=== PATIENT | female | born 1955 | race Caucasian/White ===

== ENCOUNTER 2023-05-11 13:11 | Outpatient (REF) | payer OTHER, SELFPAY | END 2023-05-11 13:12 | disposition home or self-care (01) | LOC: HO.SH 13:11 | PROVIDERS: Visit Provider Internal Medicine | DX: Z01.10 Encounter for examination of ears and hearing without abnormal findings (principal) | CPT/HCPCS: 92557 ==

== ENCOUNTER 2023-06-29 12:47 | Outpatient (REF) | payer SELFPAY ==
--- NOTE | 2023-06-29 13:32 | MHC.AU.HA1 ---
Hearing Aid Evaluation Date of Visit: 06/29/23 Historical Information: Description of Hearing: Within normal sloping to moderate sensorineural hearing loss, bilaterally. Summary: Riya reported that in August 2023, she will be added to an [facility] Medicare insurance plan that has a hearing aid benefit through [facility]. Discussed third constitution party administered benefits and advised that [facility] is not a contracted provider for hearing aids through that plan. She would need to contact [facility] to inquire about contracted providers in the area. Briefly discussed manufacturers, styles, technology levels, and pricing. Riya opted to do more research into [facility] [place]. She will call to reschedule a full consultation if she decides to pursue hearing aids here. She knows hearing aids have to be fit within six months of her hearing test and if she opts to come here, it would be an [id number] expense. Plan of Care: Patient is not interested in pursuing new amplification at this time. Primary Diagnosis: H90.3 Bilateral Sensorineural Hearing Loss Signature: Provider: Arpita Jay, [facility]
== END 2023-06-29 12:48 | disposition home or self-care (01) ==
LOC: HO.HAP 12:47
PROVIDERS: Visit Provider Internal Medicine
DX: Z13.89 Encounter for screening for other disorder (principal)

== ENCOUNTER 2023-12-19 10:33 | Outpatient (AMB) | payer OTHER, SELFPAY ==
--- NOTE | 2023-12-19 10:39 | MHC.PC.OV ---
Vital Signs 12/19/23 10:42 Height 5 ft 2 in Weight 147 lb BMI 26.9 BP 162/90 H Blood Pressure Location Rt brachial Position Sitting Pulse 79 Pulse Source Pulse Oximeter Pulse Oximetry (%) 98 Oxygen Delivery Method Room Air Intake Visit Reasons: Establish Care transfer from [facility] Note: pt is here for establish care Supervisor Shipping Required: No Allergies divalproex sodium [From Depakote] Allergy (Severe, Verified 12/19/23 10:44) Unconscious Medication List - Last Reconciled 12/19/23 by Naye Tony MD amlodipine 5 mg PO DAILY carbamazepine 400 mg PO BID sertraline 100 mg PO BID simvastatin 40 mg PO BEDTIME Tobacco use date assessed: 12/19/23 Fall risk assessment: No Falls in past year Last assessed Fall Risk: 12/19/23 Dental Screening Dental Screen Date: 12/19/23 Did you have a dental visit in the last 12 months?: Yes Did you have a dental problem in the last 6 months where you did not have access to dental care?: No Was dental information given to patient?: Patient has dentist HPI HPI Comments History of Present Illness Details The patient is a 68 year old female with a past medical history of anxiety, depression, hypertension, hyperlipidemia presenting for follow up CV: Her blood pressures were running high. She was seen in urgent care and prescribed amlodipine. There was some improvement in readings but still can be quite high especially in the am-ie 180/90. She is tolerated the amlodipine well. She attributes the high blood pressure to stress from managing the house, finances etc after her last year. BH: Her one year ago. She follows with [facility]. She has been fairly stable on sertraline and tegretol however does still experience some episodes of grief. 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 1. Little interest or pleasure in doing things: not at all 2. Feeling down, depressed, or hopeless: not at all 3. Trouble falling or staying asleep, or sleeping too much: not at all 4. Feeling tired or having little energy: not at all 5. Poor appetite or overeating: not at all 6. Feeling bad about yourself - or that you are a failure or have let yourself or your family down: not at all 7. Trouble concentrating on things, such as reading the newspaper or watching television: not at all 8. Moving or speaking so slowly that other people could have noticed. Or the opposite - being so fidgety or restless that you have been moving around a lot more than usual: not at all 9. Thoughts that you would be better off or of hurting yourself in some way: not at all Total score: 0 Depression Screening Interpretation: Negative (neg) Depression Screening Done: Yes 86935 - PHQ-9 Billing: Yes Source: Developed by Drs. Bandar Medellin, Celine Rodriguez, Anson Mcgowan and colleagues, with an educational mc from [employer]. Thrive Questionnaire Date Thrive assessed: 12/19/23 I am a: Patient What is your living situation today?: I have a steady place to live Within the past 12 months, did the food you bought not last and you didn't have the money to get more?: Never true Within the past 12 months, did you worry whether your food would run out before you got money to buy more?: Never true Do you have trouble paying for medicines?: No Do you have trouble getting transportation to medical appointments?: No Do you have trouble paying your heating and electricity bill?: No Do you have trouble taking care of your child, family member or friend?: No Do you have trouble with day-to-day activities such as bathing, preparing meals, shopping, managing finances, etc.?: No Are you currently unemployed and looking for a job?: No Are you interested in more education?: No Please select the resources that you would like help with: None Currently or been in a relationship where the following occur: no concerns reported THRIVE Score: 0 AUDIT C Alcohol Use Questionnaire (AUDIT-C) 1. How often do you have a drink containing alcohol?: Never 3. How often do you have six or more drinks on one occasion?: Never Total Score: 0 Score Reviewed/Action Taken: Yes BHARTI-7 AMB Questionnaire BHARTI-7 Date BHARTI - 7 assessed: 12/19/23 Feeling nervous, anxious, or on edge: 0 = Not at all Not being able to stop or control worryin = Not at all Worrying too much about different things: 0 = Not at all Trouble relaxin = Several days Being so restless that it is hard to sit still: 0 = Not at all Becoming easily annoyed or irritable: 0 = Not at all Feeling afraid as if something awful might happen: 0 = Not at all Total BHARTI-7 score (0-4 normal; 5-9 mild; 10-14 moderate; 15-21 severe): 1 Source: Developed by Drs. Bandar Medellin, Celine Rodriguez, Anson Mcgowan and colleagues, with an educational mc from [employer]. BHARTI-7 Assessment Billing BHARTI-7 Assessment Tool: BHARTI-7 Assessment 74764 Review of Systems Const Details: see HPI Physical exam (Primary Care) Vital Signs: Last Vital Signs Pulse 79 12/19/23 10:42 BP 162/90 H 12/19/23 10:42 Pulse Ox 98 12/19/23 10:42 Oxygen Delivery Method Room Air 12/19/23 10:42 PHYSICAL EXAM: GENERAL: Alert and oriented x 3. NAD EYES: EOMI. Anicteric. HENT: Moist mucous membranes. No scleral icterus. No cervical lymphadenopathy. LUNGS: Clear to auscultation bilaterally. CARDIOVASCULAR: Regular rate and rhythm. No murmur. No JVD. ABDOMEN: Soft, non-tender +bs EXTREMITIES: No edema. Non-tender. SKIN: No rashes or lesions. Warm. NEUROLOGIC: No focal neurological deficits. CN II-XII grossly intact PSYCHIATRIC: Cooperative. Appropriate mood and affect BMI result Body Mass Index 26.9 Tobacco/Smoking Status: Tobacco use Status Tobacco use date assessed 12/19/23 12/19/23 10:51 Patient Tobacco Use Status Never used Tobacco 12/19/23 10:51 e-Cigarette/Vaping Use Never Used 12/19/23 10:51 Depression Screening Interpretation: Negative (neg) Thrive Assessment: Date of Thrive Assessment Date Thrive assessed 12/19/23 12/19/23 10:53 Currently or been in a relationship where the following occur: no concerns reported Assessment and Plan Assessment & Plan (1) Hypertension: Comment: suboptimal control. Start losartan in evening. Continue am amlodipine. Continue to track. Recommend low salt diet. Code(s): I10 - Essential (primary) hypertension Qualifiers: Hypertension type: primary hypertension Qualified Code(s): I10 - Essential (primary) hypertension (2) Hyperlipidemia: Code(s): E78.5 - Hyperlipidemia, unspecified Qualifiers: Hyperlipidemia type: mixed hyperlipidemia Qualified Code(s): E78.2 - Mixed hyperlipidemia (3) Major depressive disorder, recurrent, in partial remission: Comment: stable Code(s): F33.41 - Major depressive disorder, recurrent, in partial remission Orders: Orders IRON PROFILE Today E78.2 - Mixed hyperlipidemia, F33.41 - Major depressive disorder, recurrent, in partial remission, I10 - Essential (primary) hypertension, R53.83 - Other fatigue, Z51.81 - Encounter for therapeutic drug level monitoring Comprehensive Met. Panel Today E78.2 - Mixed hyperlipidemia, F33.41 - Major depressive disorder, recurrent, in partial remission, I10 - Essential (primary) hypertension, R53.83 - Other fatigue, Z51.81 - Encounter for therapeutic drug level monitoring Complete Blood Count Auto Diff Today E78.2 - Mixed hyperlipidemia, F33.41 - Major depressive disorder, recurrent, in partial remission, I10 - Essential (primary) hypertension, R53.83 - Other fatigue, Z51.81 - Encounter for therapeutic drug level monitoring Carbamazepine Tegretol Today E78.2 - Mixed hyperlipidemia, F33.41 - Major depressive disorder, recurrent, in partial remission, I10 - Essential (primary) hypertension, R53.83 - Other fatigue, Z51.81 - Encounter for therapeutic drug level monitoring TSH reflex Free T4 Today E78.2 - Mixed hyperlipidemia, F33.41 - Major depressive disorder, recurrent, in partial remission, I10 - Essential (primary) hypertension, R53.83 - Other fatigue, Z51.81 - Encounter for therapeutic drug level monitoring Vitamin B12 and Folate Today E78.2 - Mixed hyperlipidemia, F33.41 - Major depressive disorder, recurrent, in partial remission, I10 - Essential (primary) hypertension, R53.83 - Other fatigue, Z51.81 - Encounter for therapeutic drug level monitoring Medications: New losartan 25 mg PO DAILY 90 tabs 3RF 90 days amlodipine 5 mg PO DAILY 90 tabs 3RF 90 days Coding Level of Care Code Est Pt Level 4 (87171) Complex EM visit Add On G2211 Diagnoses Primary hypertension I10 Hypertension type: primary hypertension Mixed hyperlipidemia E78.2 Hyperlipidemia type: mixed hyperlipidemia Major depressive disorder, recurrent, in partial remission F33.41 Additional Codes BHARTI-7 Assessment Billing - BHARTI-7 Assessment Tool: BHARTI-7 Assessment [id number] ([id number])
[2023-12-19 10:42] VITALS: BP 162/90; PULSE 79; O2SAT 98; BMI 26.9
== END 2023-12-19 11:30 | disposition home or self-care (01) ==
PROVIDERS: Visit Provider Internal Medicine
DX: I10 Essential (primary) hypertension (principal); E78.2 Mixed hyperlipidemia; F33.41 Major depressive disorder, recurrent, in partial remission
CPT/HCPCS: 99214; G2211

== ENCOUNTER 2023-12-28 08:24 | Outpatient (REF) | payer OTHER, SELFPAY ==
[2023-12-28 11:46] LABS: MANUAL DIFF FLAG NO
[2023-12-28 11:52] LABS: Basophils Percent Auto 0.3 % (0-2); Eosinophils Absolute Auto 0.1 X10*3/uL (0.0-0.4); Eosinophils Percent Auto 2.5 % (0-4); Hematocrit 40.2 % (37.0-47.0); Hemoglobin 13.3 g/dl (12.0-16.0); Imm Gran Abs Auto 0.02 X10*3/uL (0.00-0.03); Imm Gran Pct Auto 0.6 % (0.0-0.4); Lymphocytes Absolute Auto 1.5 X10*3/uL (1.2-4.9); Lymphocytes Percent Auto 43.1 % (20-40); Mean Corpuscular HGB Conc 33.1 g/dl (31.0-35.0); Mean Corpuscular Hemoglobin 32.4 pg (27.0-33.0); Mean Corpuscular Volume 97.8 fL (80.0-98.0); Mean Platelet Volume 9.7 fL (9.4-12.3); Monocytes Absolute Auto 0.2 X10*3/uL (0.1-1.2); Monocytes Percent Auto 6.8 % (2-11); Neutrophils Absolute Auto 1.7 x10*3/uL (2.0-8.3); Neutrophils Percent Auto 46.7 % (45-73); Platelet Count 198 X10*3/uL (160-400); Red Blood Count 4.11 X10*6/uL (4.20-5.50); White Blood Count 3.5 X10*3/uL (4.8-10.8)
[2023-12-28 12:47] LABS: Alanine Aminotransferase 15 U/L (0-31); Albumin Level 4.2 g/dL (3.5-5.0); Alkaline Phosphatase 115 U/L (39-117); Anion Gap 10 (12-20); Aspartate Amino Transferase 19 U/L (5-31); Bilirubin Total 0.2 mg/dL (0.0-1.0); Blood Urea Nitrogen 19 mg/dL (9-16); Calcium 9.6 mg/dL (8.4-10.2); Carbon Dioxide 29 mmol/L (22-29); Chloride 111 mmol/L (96-108); Estimated Glomerular Filt Rate 57; Glucose Random 101 mg/dL (60-115); Iron 74 mcg/dL (30-160); Percent Iron Saturation 33 % (15-50); Sodium 146 mmol/L (135-145); Total Iron Binding Capacity 222 mcg/dL (228-428); Unsaturated Iron Binding 148 ug/dL
[2023-12-28 13:07] LABS: Folate 13.7 ng/mL (> or = 4.0); TSH reflex Free T4 1.72 uIU/mL (0.32-4.0); Vitamin B12 702 pg/mL (200-900)
[2023-12-28 13:08] LABS: Carbamazepine Tegretol 11.6 mcg/mL (5.0-12.0)
== END 2023-12-28 08:25 | disposition home or self-care (01) ==
LOC: HO.WFDLDS 08:24
PROVIDERS: Visit Provider Internal Medicine
DX: F33.41 Major depressive disorder, recurrent, in partial remission (principal); E78.2 Mixed hyperlipidemia; I10 Essential (primary) hypertension; Z51.81 Encounter for therapeutic drug level monitoring
CPT/HCPCS: 36415; 80053; 80156; 82607; 82746; 83540; 84443; 85025

== ENCOUNTER 2024-06-25 08:27 | Outpatient (AMB) | payer OTHER, SELFPAY ==
--- NOTE | 2024-06-25 08:33 | A.OFFPC_ITS ---
Vital Signs 06/25/24 08:38 Height 5 ft 2 in Weight 148 lb 2 oz BMI 27.1 BP 122/76 Blood Pressure Location Rt brachial Position Sitting Pulse 65 Pulse Source Pulse Oximeter Pulse Oximetry (%) 98 Oxygen Delivery Method Room Air Intake Visit Reasons: CPE Intake Note: Physical Allergies divalproex sodium [From Depakote] Allergy (Severe, Verified 06/25/24 08:33) Unconscious Tobacco use date assessed: 12/19/23 Dental Screening Dental Screen Date: 12/19/23 HPI HPI Comments History of Present Illness Details The patient is a 68 year old female with a past medical history of anxiety, depression, hypertension, hyperlipidemia presenting for physical exam CV: On amlodipine 5mg daily, losartan 25mg daily, simvastatin 40mg daily. Has murmur says she has had echo in the past. Denies chest pain. Family history of heart disease BH: Her one year ago. She follows with [facility]. She has been fairly stable on sertraline and tegretol however does still experience some episodes of grief. 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 HEENT: Denies changes in vision and hearing. RESPIRATORY: Denies SOB and cough. CV: Denies palpitations and CP GI: Denies abdominal pain, nausea, vomiting and diarrhea. : Denies dysuria and urinary frequency. MSK: Denies new myalgia and joint pain. SKIN: Denies rash and pruritus. NEUROLOGICAL: Denies headache PSYCHIATRIC: Denies recent changes in mood. PHYSICAL EXAM: GENERAL: Alert and oriented x 3. NAD EYES: EOMI. Anicteric. HENT: Moist mucous membranes. No scleral icterus. No cervical lymphadenopathy. LUNGS: Clear to auscultation bilaterally. CARDIOVASCULAR: Regular rate and rhythm. +murmur, systolic ABDOMEN: Soft, non-tender +bs EXTREMITIES: No edema. Non-tender. SKIN: No rashes or lesions. Warm. NEUROLOGIC: No focal neurological deficits. CN II-XII grossly intact PSYCHIATRIC: Cooperative. 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 1. Little interest or pleasure in doing things: not at all 2. Feeling down, depressed, or hopeless: not at all 3. Trouble falling or staying asleep, or sleeping too much: not at all 4. Feeling tired or having little energy: not at all 5. Poor appetite or overeating: not at all 6. Feeling bad about yourself - or that you are a failure or have let yourself or your family down: not at all 7. Trouble concentrating on things, such as reading the newspaper or watching television: not at all 8. Moving or speaking so slowly that other people could have noticed. Or the opposite - being so fidgety or restless that you have been moving around a lot more than usual: not at all 9. Thoughts that you would be better off or of hurting yourself in some way: not at all Total score: 0 Depression Screening Interpretation: Negative Depression Screening Done: Yes 94193 - PHQ-9 Billing: Yes Source: Developed by Drs. Bandar Medellin, Celine Rodriguez, Anson Mcgowan and colleagues, with an educational mc from [employer]. Thrive Questionnaire Date Thrive assessed: 06/18/24 I am a: Patient What is your living situation today?: I have a steady place to live Within the past 12 months, did the food you bought not last and you didn't have the money to get more?: Never true Within the past 12 months, did you worry whether your food would run out before you got money to buy more?: Never true Do you have trouble paying for medicines?: No Do you have trouble getting transportation to medical appointments?: No Do you have trouble paying your heating and electricity bill?: No Do you have trouble taking care of your child, family member or friend?: No Do you have trouble with day-to-day activities such as bathing, preparing meals, shopping, managing finances, etc.?: No Are you currently unemployed and looking for a job?: No Are you interested in more education?: No Please select the resources that you would like help with: None Currently or been in a relationship where the following occur: No concerns reported THRIVE Score: 0 AUDIT C Alcohol Use Questionnaire (AUDIT-C) 1. How often do you have a drink containing alcohol?: Never 3. How often do you have six or more drinks on one occasion?: Never Total Score: 0 BHARTI-7 AMB Questionnaire BHARTI-7 Date BHARTI - 7 assessed: 12/19/23 Feeling nervous, anxious, or on edge: 1 = Several days Not being able to stop or control worryin = Several days Worrying too much about different things: 1 = Several days Trouble relaxin = Not at all Being so restless that it is hard to sit still: 0 = Not at all Becoming easily annoyed or irritable: 0 = Not at all Feeling afraid as if something awful might happen: 0 = Not at all Total BHARTI-7 score (0-4 normal; 5-9 mild; 10-14 moderate; 15-21 severe): 3 Source: Developed by Drs. Bandar Medellin, Celine Rodriguez, Anson Mcgowan and colleagues, with an educational mc from [employer]. Physical exam (Primary Care) Vital Signs: Last Vital Signs Pulse 65 06/25/24 08:38 BP 122/76 06/25/24 08:38 Pulse Ox 98 06/25/24 08:38 Oxygen Delivery Method Room Air 06/25/24 08:38 BMI result Body Mass Index 27.1 Tobacco/Smoking Status: Tobacco use Status Tobacco use date assessed 12/19/23 06/25/24 08:40 Patient Tobacco Use Status Never used Tobacco 06/25/24 08:40 e-Cigarette/Vaping Use Never Used 06/25/24 08:40 PHQ-9: PHQ-9 Score PHQ-9: Total score 0 06/25/24 08:40 Depression Screening Interpretation: Negative Thrive Assessment: Date of Thrive Assessment Date Thrive assessed 06/18/24 06/25/24 08:40 Currently or been in a relationship where the following occur: No concerns reported Coding Level of Care Code Est Pt Prev Care >65y(30592) Diagnoses Physical exam Z00.00 Primary hypertension I10 Hypertension type: primary hypertension Major depressive disorder, recurrent, in partial remission F33.41 Additional Codes PHQ-9 - 89097 - PHQ-9 Billing: Yes ([id number]) Assessment & Plan Assessment & Plan (1) Physical exam: Code(s): Z00.00 - Encounter for general adult medical examination without abnormal findings Plan: Preventive measures for age discussed UTD (2) Hypertension: Code(s): I10 - Essential (primary) hypertension Category: Medical Qualifiers: Hypertension type: primary hypertension Qualified Code(s): I10 - Essential (primary) hypertension Plan: well controlled on current medication Consider echo (3) Major depressive disorder, recurrent, in partial remission: Comment: stable Code(s): F33.41 - Major depressive disorder, recurrent, in partial remission Category: Medical Plan: well controlled on current medication Orders: Orders Lipid Panel Today D72.819 - Decreased white blood cell count, unspecified, E78.2 - Mixed hyperlipidemia, F33.41 - Major depressive disorder, recurrent, in partial remission, I10 - Essential (primary) hypertension Carbamazepine Tegretol Today D72.819 - Decreased white blood cell count, unspecified, E78.2 - Mixed hyperlipidemia, F33.41 - Major depressive disorder, recurrent, in partial remission, I10 - Essential (primary) hypertension Vitamin D 1,25 dihydroxy Today R79.89 - Other specified abnormal findings of blood chemistry Complete Blood Count Auto Diff Today D72.819 - Decreased white blood cell count, unspecified, E78.2 - Mixed hyperlipidemia, F33.41 - Major depressive disorder, recurrent, in partial remission, I10 - Essential (primary) hypertension Comprehensive Met. Panel Today D72.819 - Decreased white blood cell count, unspecified, E78.2 - Mixed hyperlipidemia, F33.41 - Major depressive disorder, recurrent, in partial remission, I10 - Essential (primary) hypertension
[2024-06-25 08:38] VITALS: BP 122/76; PULSE 65; O2SAT 98; BMI 27.1
== END 2024-06-25 09:08 | disposition home or self-care (01) ==
PROVIDERS: PCP Internal Medicine; Visit Provider Internal Medicine
DX: Z00.00 Encounter for general adult medical examination without abnormal findings (principal); I10 Essential (primary) hypertension; F33.41 Major depressive disorder, recurrent, in partial remission

== ENCOUNTER → 2024-06-25 08:27 | Outpatient (BNVA) | payer OTHER, SELFPAY | PROVIDERS: PCP Internal Medicine; Visit Provider Internal Medicine | DX: Z00.00 Encounter for general adult medical examination without abnormal findings (principal); I10 Essential (primary) hypertension; F33.41 Major depressive disorder, recurrent, in partial remission | CPT/HCPCS: 96127 ==

== ENCOUNTER 2024-07-02 09:30 | Outpatient (REF) | payer OTHER, SELFPAY ==
[2024-07-02 11:20] LABS: MANUAL DIFF FLAG NO
[2024-07-02 11:25] LABS: Baso%MD 0.3 %; Basophils Percent Auto 0.3 % (0-2); Eos%MD 2.6 %; Eosinophils Absolute Auto 0.1 X10*3/uL (0.0-0.4); Eosinophils Percent Auto 2.6 % (0-4); Hematocrit 37.4 % (37.0-47.0); Hemoglobin 12.6 g/dl (12.0-16.0); IG%MD 0.3 %; Imm Gran Abs Auto 0.01 X10*3/uL (0.00-0.03); Imm Gran Pct Auto 0.3 % (0.0-0.4); Lymph%MD 46.9 %; Lymphocytes Absolute Auto 1.4 X10*3/uL (1.2-4.9); Lymphocytes Percent Auto 46.9 % (20-40); Mean Corpuscular HGB Conc 33.7 g/dl (31.0-35.0); Mean Corpuscular Hemoglobin 31.9 pg (27.0-33.0); Mean Corpuscular Volume 94.7 fL (80.0-98.0); Mean Platelet Volume 9.5 fL (9.4-12.3); Mono%MD 9.2 %; Monocytes Absolute Auto 0.3 X10*3/uL (0.1-1.2); Monocytes Percent Auto 9.2 % (2-11); Neut%MD 40.7 %; Neutrophils Absolute Auto 1.2 x10*3/uL (2.0-8.3); Neutrophils Percent Auto 40.7 % (45-73); Platelet Count 167 X10*3/uL (160-400); Red Blood Count 3.95 X10*6/uL (4.20-5.50); Red Cell Distribution Width 12.4 % (11.0-16.0); White Blood Count 3.1 X10*3/uL (4.8-10.8)
[2024-07-02 12:02] LABS: Carbamazepine Tegretol 11.2 mcg/mL (5.0-12.0)
[2024-07-02 12:15] LABS: Alanine Aminotransferase 17 U/L (0-31); Alkaline Phosphatase 120 U/L (39-117); Anion Gap 10 (12-20); Aspartate Amino Transferase 23 U/L (5-31); Bilirubin Total 0.3 mg/dL (0.0-1.0); Blood Urea Nitrogen 18 mg/dL (9-16); Carbon Dioxide 30 mmol/L (22-29); Chloride 108 mmol/L (96-108); Cholesterol 202 mg/dL (<200); Estimated Glomerular Filt Rate 54; Glucose Random 94 mg/dL (60-115); HDL Cholesterol 56 mg/dL (>40); Potassium 4.1 mmol/L (3.3-5.1); Sodium 144 mmol/L (135-145); Total Protein 6.7 g/dL (6.5-8.0)
[2024-07-02 12:24] LABS: LDL Cholesterol Calculated 129 mg/dL (<100); Triglycerides 86 mg/dL (<150)
[2024-07-02 13:59] LABS: Band Neutrophils Percent 0 % (3-5); Eosinophils Absolute Manual 0.1 X10*3/uL (0.0-0.4); Eosinophils Percent Manual 3 % (0-4); Lymphocytes Absolute Manual 1.5 X10*3/uL (1.2-4.9); Lymphocytes Percent Manual 49 % (20-40); Monocytes Absolute Manual 0.1 X10*3/uL (0.1-1.2); Monocytes Percent Manual 3 % (2-11); Neutrophils Absolute Manual 1.4 X10*3/uL (2.0-8.3); Neutrophils Percent Manual 45 % (45-73)
[2024-07-02 14:00] LABS: Platelet Estimate NORMAL (NORMAL); Platelet Morphology Comment NORMAL; RBC Morphology NORMAL
[2024-07-05 17:48] LABS: VITAMIN D (1,25 OH) D3 47 pg/mL; Vit D (1,25-Dihydroxy) Total 47 pg/mL (18-72); Vitamin D (1,25 OH) D2 <8 pg/mL
== END 2024-07-02 09:31 | disposition home or self-care (01) ==
LOC: HO.WFDLDS 09:30
PROVIDERS: Visit Provider Internal Medicine
DX: D72.819 Decreased white blood cell count, unspecified (principal); F33.41 Major depressive disorder, recurrent, in partial remission; I10 Essential (primary) hypertension; E78.2 Mixed hyperlipidemia; R79.89 Other specified abnormal findings of blood chemistry
CPT/HCPCS: 36415; 80053; 80061; 80156; 82652; 85007; 85025; 85027

== ENCOUNTER 2024-12-31 13:41 | Outpatient (AMB) | payer OTHER, SELFPAY ==
--- NOTE | 2024-12-31 13:43 | MHC.PC.OV ---
Vital Signs 12/31/24 13:48 Height 5 ft 2 in Weight 146 lb 2 oz BMI 26.7 BP 128/82 Blood Pressure Location Rt brachial Position Sitting Respiration 12 Pulse 67 Pulse Source Pulse Oximeter Pulse Oximetry (%) 98 Oxygen Delivery Method Room Air Intake Visit Reasons: follow up BP Intake Note: Follow up hypertension. Staff Veterinarian Required: No Allergies divalproex sodium [From Depakote] Allergy (Severe, Verified 12/31/24 13:46) Unconscious Tobacco use date assessed: 12/31/24 Fall risk assessment: No Falls in past year Last assessed Fall Risk: 12/31/24 Dental Screening Dental Screen Date: 12/31/24 Did you have a dental visit in the last 12 months?: Yes Did you have a dental problem in the last 6 months where you did not have access to dental care?: No Was dental information given to patient?: Patient has dentist HPI HPI Comments History of Present Illness Details The patient is a 69 year old female with a past medical history of anxiety, depression, hypertension, hyperlipidemia presenting for follow up CV: On amlodipine 5mg daily, losartan 25mg daily, simvastatin 40mg daily. Denies chest pain. Family history of heart disease. Would like to try off one of two BP medications BH: Her ~2 years ago. She follows with [facility]. She has been fairly stable on sertraline and tegretol however does still experience some episodes of grief. Mammo: 04/30/2024. 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 HEENT: Denies changes in vision and hearing. RESPIRATORY: Denies SOB and cough. CV: Denies palpitations and CP GI: Denies abdominal pain, nausea, vomiting and diarrhea. : Denies dysuria and urinary frequency. MSK: Denies new myalgia and joint pain. SKIN: Denies rash and pruritus. NEUROLOGICAL: Denies headache PSYCHIATRIC: Denies recent changes in mood. PHYSICAL EXAM: GENERAL: Alert and oriented x 3. NAD EYES: EOMI. Anicteric. HENT: Moist mucous membranes. No scleral icterus. No cervical lymphadenopathy. LUNGS: Clear to auscultation bilaterally. CARDIOVASCULAR: Regular rate and rhythm. +murmur, systolic ABDOMEN: Soft, non-tender +bs EXTREMITIES: No edema. Non-tender. SKIN: No rashes or lesions. Warm. NEUROLOGIC: No focal neurological deficits. CN II-XII grossly intact PSYCHIATRIC: Cooperative. 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 1. Little interest or pleasure in doing things: not at all 2. Feeling down, depressed, or hopeless: not at all 3. Trouble falling or staying asleep, or sleeping too much: not at all 4. Feeling tired or having little energy: not at all 5. Poor appetite or overeating: not at all 6. Feeling bad about yourself - or that you are a failure or have let yourself or your family down: not at all 7. Trouble concentrating on things, such as reading the newspaper or watching television: not at all 8. Moving or speaking so slowly that other people could have noticed. Or the opposite - being so fidgety or restless that you have been moving around a lot more than usual: not at all 9. Thoughts that you would be better off or of hurting yourself in some way: not at all Total score: 0 Depression Screening Interpretation: Negative Depression Screening Done: Yes [id number] - PHQ-9 Billing: Yes Source: Developed by Drs. Bandar Medellin, Celine Rodriguez, Anson Mcgowan and colleagues, with an educational mc from [employer]. Thrive Questionnaire Date Thrive assessed: 12/25/24 I am a: Patient What is your living situation today?: I have a steady place to live Within the past 12 months, did the food you bought not last and you didn't have the money to get more?: Never true Within the past 12 months, did you worry whether your food would run out before you got money to buy more?: Never true Do you have trouble paying for medicines?: No Do you have trouble getting transportation to medical appointments?: No Do you have trouble paying your heating and electricity bill?: No Do you have trouble taking care of your child, family member or friend?: No Do you have trouble with day-to-day activities such as bathing, preparing meals, shopping, managing finances, etc.?: No Are you currently unemployed and looking for a job?: No Are you interested in more education?: No Please select the resources that you would like help with: None Currently or been in a relationship where the following occur: No concerns reported THRIVE Score: 0 AUDIT C Alcohol Use Questionnaire (AUDIT-C) 1. How often do you have a drink containing alcohol?: Never 3. How often do you have six or more drinks on one occasion?: Never Total Score: 0 BHARTI-7 AMB Questionnaire BHARTI-7 Date BHARTI - 7 assessed: 12/19/23 Feeling nervous, anxious, or on edge: 0 = Not at all Not being able to stop or control worryin = Not at all Worrying too much about different things: 0 = Not at all Trouble relaxin = Not at all Being so restless that it is hard to sit still: 0 = Not at all Becoming easily annoyed or irritable: 0 = Not at all Feeling afraid as if something awful might happen: 0 = Not at all Total BHARTI-7 score (0-4 normal; 5-9 mild; 10-14 moderate; 15-21 severe): 0 Source: Developed by Drs. Bandar Medellin, Celine Rodriguez, Anson Mcgowan and colleagues, with an educational mc from [employer]. Physical exam (Primary Care) Vital Signs: Last Vital Signs Pulse 67 12/31/24 13:48 Resp 12 12/31/24 13:48 BP 128/82 12/31/24 13:48 Pulse Ox 98 12/31/24 13:48 Oxygen Delivery Method Room Air 12/31/24 13:48 BMI result Body Mass Index 26.7 Tobacco/Smoking Status: Tobacco use Status Tobacco use date assessed 12/31/24 12/31/24 13:51 Patient Tobacco Use Status Never used Tobacco 12/31/24 13:45 e-Cigarette/Vaping Use Never Used 12/31/24 13:45 PHQ-9: PHQ-9 Score PHQ-9: Total score 0 12/31/24 13:51 Depression Screening Interpretation: Negative Thrive Assessment: Date of Thrive Assessment Date Thrive assessed 12/25/24 12/31/24 13:45 Currently or been in a relationship where the following occur: No concerns reported Coding Level of Care Code Est Pt Level 4 (86375) Diagnoses Heart murmur R01.1 Major depressive disorder, recurrent, in partial remission F33.41 Mixed hyperlipidemia E78.2 Hyperlipidemia type: mixed hyperlipidemia Primary hypertension I10 Hypertension type: primary hypertension Additional Codes PHQ-9 - 14667 - PHQ-9 Billing: Yes ([id number]) Assessment & Plan Assessment & Plan (1) Heart murmur: Code(s): R01.1 - Cardiac murmur, unspecified Category: Medical (2) Major depressive disorder, recurrent, in partial remission: Comment: stable Code(s): F33.41 - Major depressive disorder, recurrent, in partial remission Category: Medical (3) Hyperlipidemia: Code(s): E78.5 - Hyperlipidemia, unspecified Category: Medical Qualifiers: Hyperlipidemia type: mixed hyperlipidemia Qualified Code(s): E78.2 - Mixed hyperlipidemia (4) Hypertension: Code(s): I10 - Essential (primary) hypertension Category: Medical Qualifiers: Hypertension type: primary hypertension Qualified Code(s): I10 - Essential (primary) hypertension Plan Heart murmur-echo ordered HTN well controlled. Can try off norvasc and monitor at home Labs ordered today Depression is well controlled Orders: Orders Vitamin D 25-OH (D2 and D3) Today R73.09 - Other abnormal glucose, R79.89 - Other specified abnormal findings of blood chemistry, Z51.81 - Encounter for therapeutic drug level monitoring CA echo transthoracic complete Today R01.1 - Cardiac murmur, unspecified XR DEXA axial skeleton Today N95.1 - Menopausal and female climacteric states, R79.89 - Other specified abnormal findings of blood chemistry Comprehensive Met. Panel Today D72.819 - Decreased white blood cell count, unspecified, E78.2 - Mixed hyperlipidemia, F33.41 - Major depressive disorder, recurrent, in partial remission, I10 - Essential (primary) hypertension, R53.83 - Other fatigue Complete Blood Count Auto Diff Today D72.819 - Decreased white blood cell count, unspecified, E78.2 - Mixed hyperlipidemia, F33.41 - Major depressive disorder, recurrent, in partial remission, I10 - Essential (primary) hypertension, R53.83 - Other fatigue Pathologist Review - CBC Today D72.819 - Decreased white blood cell count, unspecified, E78.2 - Mixed hyperlipidemia, F33.41 - Major depressive disorder, recurrent, in partial remission, I10 - Essential (primary) hypertension, R53.83 - Other fatigue Carbamazepine Tegretol Today R73.09 - Other abnormal glucose, R79.89 - Other specified abnormal findings of blood chemistry, Z51.81 - Encounter for therapeutic drug level monitoring Hemoglobin A1c Today R73.09 - Other abnormal glucose, R79.89 - Other specified abnormal findings of blood chemistry, Z51.81 - Encounter for therapeutic drug level monitoring Medications: Refilled simvastatin 40 mg PO BEDTIME 90 tabs 3RF Discontinued amlodipine Discontinued Reason: Doctor's Order 5 mg PO DAILY 90 days 90 tabs 1RF
[2024-12-31 13:48] VITALS: BP 128/82; PULSE 67; RESP 12; O2SAT 98; BMI 26.7
== END 2024-12-31 14:11 | disposition home or self-care (01) ==
LOC: HO.HMCFM 13:42
PROVIDERS: PCP Internal Medicine; Visit Provider Internal Medicine
DX: R01.1 Cardiac murmur, unspecified (principal); F33.41 Major depressive disorder, recurrent, in partial remission; E78.2 Mixed hyperlipidemia; I10 Essential (primary) hypertension

== ENCOUNTER → 2024-12-31 13:41 | Outpatient (BNVA) | payer OTHER, SELFPAY | PROVIDERS: PCP Internal Medicine; Visit Provider Internal Medicine | DX: I10 Essential (primary) hypertension (principal); E78.5 Hyperlipidemia, unspecified; F33.41 Major depressive disorder, recurrent, in partial remission; R01.1 Cardiac murmur, unspecified; E78.2 Mixed hyperlipidemia; R73.09 Other abnormal glucose; R79.89 Other specified abnormal findings of blood chemistry; Z51.81 Encounter for therapeutic drug level monitoring | CPT/HCPCS: 96127; 99212 ==

== ENCOUNTER 2024-12-31 14:38 | Outpatient (REF) | payer OTHER, SELFPAY ==
[2024-12-31 17:34] LABS: MANUAL DIFF FLAG NO
[2024-12-31 17:54] LABS: Estimated Average Glucose 94 mg/dL; Hemoglobin A1c % 4.9 % (<6.0)
[2024-12-31 17:59] LABS: Alanine Aminotransferase 20 U/L (0-31); Albumin Level 4.3 g/dL (3.5-5.0); Alkaline Phosphatase 119 U/L (39-117); Anion Gap 12 (12-20); Aspartate Amino Transferase 31 U/L (5-31); Bilirubin Total 0.3 mg/dL (0.0-1.0); Blood Urea Nitrogen 28 mg/dL (9-16); Carbon Dioxide 29 mmol/L (22-29); Chloride 108 mmol/L (96-108); Estimated Glomerular Filt Rate 52; Glucose Random 102 mg/dL (60-115); Potassium 4.5 mmol/L (3.3-5.1); Sodium 144 mmol/L (135-145); Total Protein 6.9 g/dL (6.5-8.0)
[2024-12-31 18:04] LABS: Carbamazepine Tegretol 13.2 mcg/mL (5.0-12.0)
[2024-12-31 18:35] LABS: Basophils Percent Auto 0.2 % (0-2); Eosinophils Absolute Auto 0.1 X10*3/uL (0.0-0.4); Eosinophils Percent Auto 1.5 % (0-4); Hematocrit 38.5 % (37.0-47.0); Hemoglobin 12.5 g/dl (12.0-16.0); Imm Gran Abs Auto 0.01 X10*3/uL (0.00-0.03); Imm Gran Pct Auto 0.2 % (0.0-0.4); Lymphocytes Absolute Auto 1.3 X10*3/uL (1.2-4.9); Lymphocytes Percent Auto 30.6 % (20-40); Mean Corpuscular HGB Conc 32.5 g/dl (31.0-35.0); Mean Corpuscular Hemoglobin 31.9 pg (27.0-33.0); Mean Corpuscular Volume 98.2 fL (80.0-98.0); Mean Platelet Volume 9.8 fL (9.4-12.3); Monocytes Absolute Auto 0.2 X10*3/uL (0.1-1.2); Monocytes Percent Auto 5.9 % (2-11); NRBC Pct Auto 0.5 /100WBC (0.0-0.2); Neutrophils Absolute Auto 2.5 x10*3/uL (2.0-8.3); Neutrophils Percent Auto 61.6 % (45-73); Platelet Count 184 X10*3/uL (160-400); Red Blood Count 3.92 X10*6/uL (4.20-5.50); Red Cell Distribution Width 12.5 % (11.0-16.0); White Blood Count 4.1 X10*3/uL (4.8-10.8)
[2025-01-03 18:53] LABS: Vitamin D 25-OH, D2 <4 ng/mL; Vitamin D 25-OH, D3 42 ng/mL; Vitamin D 25-OH, Total 42 ng/mL (30-100)
== END 2024-12-31 14:39 | disposition home or self-care (01) ==
LOC: HO.WFDLDS 14:38
PROVIDERS: Visit Provider Internal Medicine
DX: F33.41 Major depressive disorder, recurrent, in partial remission (principal); D72.819 Decreased white blood cell count, unspecified; I10 Essential (primary) hypertension; E78.2 Mixed hyperlipidemia; Z51.81 Encounter for therapeutic drug level monitoring; R79.89 Other specified abnormal findings of blood chemistry; R73.09 Other abnormal glucose
CPT/HCPCS: 80053; 80156; 82306; 83036; 85025

== ENCOUNTER → 2025-01-30 08:50 | Outpatient (BNV) | payer OTHER, SELFPAY | PROVIDERS: PCP Internal Medicine; Visit Provider Internal Medicine Cardiovascular Disease | DX: I35.0 Nonrheumatic aortic (valve) stenosis (principal); I35.8 Other nonrheumatic aortic valve disorders; I34.81 Nonrheumatic mitral (valve) annulus calcification; I34.0 Nonrheumatic mitral (valve) insufficiency | CPT/HCPCS: 93306 ==

== ENCOUNTER → 2025-01-30 08:53 | Outpatient (REF) | payer OTHER, SELFPAY ==
--- NOTE | 2025-01-30 08:50 | CA_ITS ---
Transthoracic Echocardiogram Patient (Last, First, Middle): Riya Castillo, Gender: Female Date of : 1955 Age: 69 Procedure Date: 01/30/2025 Procedure Type: Transthoracic Echocardiogram Location: OP Height: 157.48 cm Weight: 66.23 kg BSA: 1.67 m2 Heart Rate: bpm BP: 128 / 82 mmHg Solutions Development Analyst: TO Referring MD: Naye Tony MD Utilization Management Manager: Davis Jones MD Symptoms: R01.1 - Cardiac murmur, unspecified Study Quality: Adequate ECG Rhythm: Sinus Conclusions: - 1. Normal LV ejection fraction of 60 65% with impaired relaxation filling pattern 2. Calcific aortic can mitral valve changes noted with early mild aortic stenosis and mild mitral regurgitation 3. Normal RV systolic pressure 4. No gross pericardial effusion Findings Left Ventricle Normal left ventricular size, thickness, and systolic function. The visually estimated ejection fraction is between 60-65%. Spectral Doppler is indicative of an impaired relaxation filling pattern. Right Ventricle Normal right ventricular cavity size and systolic function. Atria The left atrium is mildly dilated. Interatrial shunt cannot be excluded. The right atrium is normal in size. Aortic Valve There is mild calcification of the aortic valve. The peak aortic velocity is 1.97 m/s with a calculated peak gradient of 16 mmHg. The mean gradient is 8 mmHg. The aortic valve area is 2.13 cm2. There is no aortic valve regurgitation. increased gradient across the aortic valve suggestive of early mild aortic stenosis Mitral Valve There is mild anterior and moderate posterior mitral leaflet thickening. There is moderate mitral annular calcification. There is mild mitral valve regurgitation. There is no mitral valve stenosis. Pulmonic Valve The pulmonic valve is likely normal. There is trace pulmonic valve regurgitation. Tricuspid Valve Normal tricuspid valve structure. There is trace tricuspid valve regurgitation. The right ventricular systolic pressure is normal. The right ventricular systolic pressure is 17 mmHg. Normal right atrial pressure. There is no evidence of pulmonary hypertension. Great Vessels The pulmonary artery was not well visualized. There is no dilatation of the ascending aorta measuring 3.10 cm. Small plaque is seen in the sino tubular ridge. Venous The inferior vena cava is normal in size and collapses greater than 50% with inspiration. Pericardium/Pleural There is no evidence of pericardial effusion. Prior Study Comparison No prior study available for comparison. Measurements 2D Linear Measurements IVSd: 0.83 0.6-0.9/0.6-1.0 cm LVIDd: 4.60 3.9-5.3/4.2-5.9 cm LVIDd Index: 2.75 2.4-3.2/2.2-3.1 cm/m2 LVIDs: 2.73 2.0-3.6 cm LVPWd: 0.67 0.7-1.1 cm LA Diam: 3.60 2.7-3.8/3.0-4.0 cm LAIDs Index: 2.16 1.5-2.3 cm/m2 LV Mass: 135.76 67-162/88-224 g LV Mass Index: 81.29 43-95/49-115 g/m2 LVOT Diam: 2.00 3.0+(-)1.3 cm 2D Systolic Function EF 4C: 59.40 >55% EF 2C: 63.20 >55% EF BiP: 60.70 >55% Mitral Valve MV Pk E: 0.61 MV PK A: 0.57 MV Decel Time: 254.00 E/A: 1.10 E'Lateral: 8.70 E'Medial: 5.00 E/E' Med: 12.20 E/E' Lat: 7.00 PHT: 74.00 MVA PHT: 2.97 Decel [place]: 2.40 Aortic Valve AoV Pk Marquis: 1.97 AoV Mn Marquis: 1.31 AoV VTI: 0.43 AoV Pk Grad: 16.00 Aov Mn Grad: 8.00 JASPER Cont.VTI: 2.13 LVOT LVOT Pk Marquis: 1.32 LVOT Mn Marquis: 0.89 LVOT VTI: 0.29 LVOT Pk Grad: 7.00 LVOT Mn Grad: 4.00 LVOT Diam: 2.00 LVOT Area: 3.14 Diastolic Function MV Pk E: 0.61 MV Pk A: 0.57 E/A: 1.10 E'Medial: 5.00 E/E' Med: 12.20 E' Laterial: 8.70 E/E' Lat: 7.00 Right Ventricle TAPSE (mm): 20.00 TVS' Marquis: 11.50 Tricuspid Valve TR Pk Marquis: 1.86 TR Pk Grad: 14.00 RA Press: 3.00 RVSP: 17.00 Great Vessels Aorta Sinus of Valsalva: 2.90 2.0-3.5 cm Ao Asc: 3.10 2.1-3.4 cm Updated in Other Vendor System with Status of Final Davis Jones MD electronically signed on 01/30/2025 3:48:01 PM with status of Final
== END ==
LOC: HO.CARD 08:53
PROVIDERS: PCP Internal Medicine; Visit Provider Internal Medicine
DX: R01.1 Cardiac murmur, unspecified (principal)
CPT/HCPCS: 93306

== ENCOUNTER 2025-04-22 10:07 | Outpatient (AMB) | payer OTHER, SELFPAY ==
--- NOTE | 2025-04-22 10:34 | A.OFFPC_ITS ---
Vital Signs 04/22/25 10:37 Height 5 ft 2 in Weight 144 lb 4 oz BMI 26.4 BP 128/86 Blood Pressure Location Lt brachial Position Sitting Respiration 14 Pulse 69 Pulse Source Pulse Oximeter Pulse Oximetry (%) 96 Oxygen Delivery Method Room Air Intake Visit Reasons: sleep study request Intake Note: Requesting sleep study Ethnic Studies Professor Required: No Allergies divalproex sodium (From Depakote) Allergy (Severe, Verified 04/22/25 10:35) Unconscious Tobacco use date assessed: 04/22/25 Fall risk assessment: No Falls in past year Last assessed Fall Risk: 04/22/25 Dental Screening Dental Screen Date: 12/31/24 HPI HPI Comments History of Present Illness Details The patient is a 69 year old female with a past medical history of anxiety, depression, hypertension, hyperlipidemia presenting for follow up Recently on vacation. Her friend noticed that she stops breathing multiple times every hour. She snores. She has been told this in the past. She would like to pursue sleep apnea testing CV: On amlodipine 5mg daily, losartan 25mg daily, simvastatin 40mg daily. Denies chest pain. Family history of heart disease. Would like to try off one of two BP medications BH: Her ~2 years ago. [facility]. She has been fairly stable on sertraline and tegretol however does still experience some episodes of grief. Mammo: 04/30/2024. 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 NAD EYES: EOMI. Anicteric. HENT: Moist mucous membranes. No scleral icterus. No cervical lymphadenopathy. LUNGS: Clear to auscultation bilaterally. CARDIOVASCULAR: Regular rate and rhythm. +murmur, systolic ABDOMEN: Soft, non-tender +bs EXTREMITIES: No edema. Non-tender. SKIN: No rashes or lesions. Warm. NEUROLOGIC: No focal neurological deficits. CN II-XII grossly intact PSYCHIATRIC: Cooperative. 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 Current occupational exposures/hazards: No Cognitive needs: No Hearing needs: Yes Vision needs: Yes Questionnaire Thrive Questionnaire Date Thrive assessed: 12/25/24 I am a: Patient What is your living situation today?: I have a steady place to live Within the past 12 months, did the food you bought not last and you didn't have the money to get more?: Never true Within the past 12 months, did you worry whether your food would run out before you got money to buy more?: Never true Do you have trouble paying for medicines?: No Do you have trouble getting transportation to medical appointments?: No Do you have trouble paying your heating and electricity bill?: No Do you have trouble taking care of your child, family member or friend?: No Do you have trouble with day-to-day activities such as bathing, preparing meals, shopping, managing finances, etc.?: No Are you currently unemployed and looking for a job?: No Are you interested in more education?: No Please select the resources that you would like help with: None Currently or been in a relationship where the following occur: No concerns reported THRIVE Score: 0 AUDIT C Alcohol Use Questionnaire (AUDIT-C) 1. How often do you have a drink containing alcohol?: Never 3. How often do you have six or more drinks on one occasion?: Never Total Score: 0 BHARTI-7 AMB Questionnaire BHARTI-7 Date BHARTI - 7 assessed: 12/19/23 Source: Developed by Drs. Bandar Medellin, Celine Rodriguez, Anosn Mcgowan and colleagues, with an educational mc from [employer]. Physical exam (Primary Care) Vital Signs: Last Vital Signs Pulse 69 04/22/25 10:37 Resp 14 04/22/25 10:37 BP 128/86 04/22/25 10:37 Pulse Ox 96 04/22/25 10:37 Oxygen Delivery Method Room Air 04/22/25 10:37 BMI result Body Mass Index 26.4 Tobacco/Smoking Status: Tobacco use Status Tobacco use date assessed 04/22/25 04/22/25 10:39 Patient Tobacco Use Status Never used Tobacco 04/22/25 10:39 e-Cigarette/Vaping Use Never Used 04/22/25 10:39 Thrive Assessment: Date of Thrive Assessment Date Thrive assessed 12/25/24 04/22/25 10:39 Currently or been in a relationship where the following occur: No concerns reported Coding Level of Care Code Est Pt Level 4 (84275) Diagnoses Apnea R06.81 Snoring R06.83 Primary hypertension I10 Hypertension type: primary hypertension Assessment & Plan Assessment & Plan (1) Apnea: Code(s): R06.81 - Apnea, not elsewhere classified Category: Medical (2) Snoring: Code(s): R06.83 - Snoring Category: Medical (3) Hypertension: Code(s): I10 - Essential (primary) hypertension Category: Medical Qualifiers: Hypertension type: primary hypertension Qualified Code(s): I10 - Essential (primary) hypertension Plan 69 year old for follow up Apnea, snoring htn-sleep testing ordered. Referral sleep medicine HTN is well controlled on current medication Orders: Orders RT home sleep study Today R06.81 - Apnea, not elsewhere classified, R06.83 - Snoring, R53.83 - Other fatigue Referrals Sleep Medicine Referral R06.81 - Apnea, not elsewhere classified, R06.83 - Snoring, R53.83 - Other fatigue
[2025-04-22 10:37] VITALS: BP 128/86; PULSE 69; RESP 14; O2SAT 96; BMI 26.4
== END 2025-04-22 11:20 | disposition home or self-care (01) ==
LOC: HO.HMCFM 10:07
PROVIDERS: PCP Internal Medicine; Visit Provider Internal Medicine
DX: R06.81 Apnea, not elsewhere classified (principal); R06.83 Snoring; I10 Essential (primary) hypertension

== ENCOUNTER → 2025-04-22 10:07 | Outpatient (BNVA) | payer OTHER, SELFPAY | PROVIDERS: PCP Internal Medicine; Visit Provider Internal Medicine | DX: R06.81 Apnea, not elsewhere classified (principal); R06.83 Snoring; I10 Essential (primary) hypertension | CPT/HCPCS: 99212 ==

== ENCOUNTER 2025-04-24 14:59 | Outpatient (AMB) | payer OTHER, SELFPAY ==
[2025-04-24 15:02] VITALS: BP 118/78; PULSE 68; O2SAT 97; BMI 26.6
--- NOTE | 2025-04-24 15:02 | A.OFFVIS_ITS ---
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 Recently on girls vacation. Her friend noticed that she stops breathing multiple times every hour. She snores. She has been told this in the past. HST order placed by PCP. Goes to bed around 10-11pm and wake up at 6am some days 8-9am. No history of sleep studies. Some times takes naps(3hr). Allergies divalproex sodium (From Depakote) Allergy (Severe, Verified 04/24/25 15:04) Unconscious HPI Comments Details: 69 year old female is referred to us for a sleep apnea evaluation per her pcp. She has always had anxiety and depression since her passed. She takes Tegretol and Zoloft daily. She adjunts with Lorazepam prn due to IBS. Her sleep has been intermittent since her passed, she gets overwhelmed with maintaining the home. She goes to bed at 10-11pm and wakes up in several hours as she is unable to fall asleep. She eats something and then watches tv to help induce sleep. She snores loudly, gasps for air with witnessed apneas. She denies morning headaches.She has bruxism, and denies jaw pain, does not wear her mouth guard.Her hearing is poor, she has bilateral hearing aids. She notices she is exhausted by 9am and is unable to take a nap due to watching her grand-son about 2x per week. She gets home at 4-5pm and will take a 3 hour nap. Her BP is well control. Mood can be irritable though has improved with Tegretol. She is involved with her lutheran and plays cards with her g/f. Her memory is stable, she does forget words intermittently. FH dad TIA and CABG, he is 90 years old and still has great cognition. Mom passed at 38 years of age due to a cerebral hemorrhage. 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 Current occupational exposures/hazards: No Cognitive needs: No Hearing needs: Yes Vision needs: Yes Physical Exam Vital Signs: Last Vital Signs Pulse 68 04/24/25 15:02 BP 118/78 04/24/25 15:02 Pulse Ox 97 04/24/25 15:02 Oxygen Delivery Method Room Air 04/24/25 15:02 BMI result Body Mass Index 26.6 Const General: cooperative, comfortable and no acute distress Nutritional Appearance: average body habitus Orientation/consciousness: patient oriented x3 HEENT Face and sinus: Yes face symmetric Teeth and gingiva: other ([place]pti score is 3) Eyes Pupils: Equal, round and reactive pupils present Neck Neck: Yes full ROM Resp Effort & Inspection: normal respiratory effort and able to speak in complete sentences Neuro General: patient oriented x3 and moves all extremities Cranial nerves: Yes Equal, round and reactive pupils present, Yes Normal accommodation reflex present, Yes Normal facial strength present, Yes Midline tongue present, Yes Ability to bilaterally rotate head present and Yes Ability to bilaterally elevate shoulders present Cognition (Neuro): normal cognition Gait exam (Neuro): Normal gait present Motor exam (neuro): Abnormal motor strength present and Abnormal muscle tone present Psych Appearance: grossly normal Thought process: Normal thought process present Thought content: Normal thought content present Assessment & Plan Assessment & Plan (1) Excessive daytime sleepiness: Code(s): G47.19 - Other hypersomnia Category: Medical (2) Fatigue: Code(s): R53.83 - Other fatigue Category: Medical Qualifiers: Fatigue type: chronic, unspecified Qualified Code(s): R53.82 - Chronic fatigue, unspecified Plan HST r/o shilpi Labs to r/o deficiencies Orders: Orders Ferritin Today G47.19 - Other hypersomnia Vitamin B12 and Folate Today G47.19 - Other hypersomnia Vitamin B1 Today G47.19 - Other hypersomnia TSH reflex Free T4 Today G47.19 - Other hypersomnia Vitamin B6 Today G47.19 - Other hypersomnia, R53.83 - Other fatigue Methylmalonic Acid Today G47.19 - Other hypersomnia, G47.9 - Sleep disorder, unspecified, R53.83 - Other fatigue Homocysteine Today G47.19 - Other hypersomnia, G47.9 - Sleep disorder, unspecified, R53.83 - Other fatigue Patient Instructions: Sleep Hygiene provided: set a scheduled bedtime and wake time to help regulate the circadian rhythm and balance the release of pituitary hormones. Sleep in a dark room, temperatures below 68 degrees, and no devices n bed. Limit caffeinated products 6 hours prior to bed, and limit fluids 2-4 hours prior to bed. Gentle night yoga, diffusing essential oils, and playing soft music can be relaxing. Coding Level of Care Code New Pt Level 4 (83470) Diagnoses Excessive daytime sleepiness G47.19 Chronic fatigue R53.82 Fatigue type: chronic, unspecified Sleep Questionnaire Difficulty falling asleep: Yes Difficulty staying asleep?: Yes Number of arousals: every half hour daily Snoring: Yes Witnessed apneas: Yes Gasping arousals: Yes Nocturia: No (0) GERD: No Vivid dreams: Yes Acting out dreams: No Abnormal behavior in sleep: No Abnormal movements in sleep: Yes Morning headaches: No Excessive daytime sleepiness: Yes Daytime naps: Yes Restless legs: No Hallucinations: No Sleep paralysis: No Drop attacks: No Sleep Study: No CPAP: No
== END 2025-04-24 15:47 | disposition home or self-care (01) ==
LOC: HO.HSMC 14:59
PROVIDERS: PCP Internal Medicine; Visit Provider Physician Assistant Medical
DX: G47.19 Other hypersomnia (principal); R53.82 Chronic fatigue, unspecified
CPT/HCPCS: 99204

== ENCOUNTER → 2025-04-24 14:59 | Outpatient (BNVA) | payer OTHER, SELFPAY | PROVIDERS: PCP Internal Medicine; Visit Provider Physician Assistant Medical | DX: G47.19 Other hypersomnia (principal); R53.82 Chronic fatigue, unspecified | CPT/HCPCS: 99202 ==

== ENCOUNTER → 2025-07-08 10:44 | Outpatient (REF) | payer OTHER, SELFPAY | LOC: HO.SL 10:44 | PROVIDERS: PCP Internal Medicine; Visit Provider Internal Medicine | DX: R53.83 Other fatigue (principal); G47.10 Hypersomnia, unspecified; R06.81 Apnea, not elsewhere classified; R06.83 Snoring | CPT/HCPCS: 95806 ==

== ENCOUNTER → 2025-07-08 11:09 | Outpatient (BNV) | payer OTHER, SELFPAY | PROVIDERS: PCP Internal Medicine; Visit Provider Internal Medicine | DX: G47.10 Hypersomnia, unspecified (principal) | CPT/HCPCS: 95806 ==

== ENCOUNTER 2025-07-15 13:44 | Outpatient (REF) | payer OTHER, SELFPAY ==
[2025-07-15 18:03] LABS: MANUAL DIFF FLAG NO
[2025-07-15 18:18] LABS: Hematocrit 37.5 % (37.0-47.0); Hemoglobin 12.3 g/dl (12.0-16.0); Imm Gran Abs Auto 0.01 X10*3/uL (0.00-0.03); Imm Gran Pct Auto 0.2 % (0.0-0.4); Lymphocytes Absolute Auto 1.5 X10*3/uL (1.2-4.9); Mean Corpuscular HGB Conc 32.8 g/dl (31.0-35.0); Mean Corpuscular Hemoglobin 31.8 pg (27.0-33.0); Mean Corpuscular Volume 96.9 fL (80.0-98.0); NRBC Abs Auto 0.000 X10*3/uL (0.0-0.012); NRBC Pct Auto 0.0 /100WBC (0.0-0.2); Platelet Count 186 X10*3/uL (160-400); Red Blood Count 3.87 X10*6/uL (4.20-5.50); White Blood Count 4.4 X10*3/uL (4.8-10.8)
[2025-07-15 18:43] LABS: Alanine Aminotransferase 19 U/L (0-31); Albumin Level 4.4 g/dL (3.5-5.0); Alkaline Phosphatase 121 U/L (39-117); Anion Gap 10 (12-20); Aspartate Amino Transferase 26 U/L (5-31); Blood Urea Nitrogen 18 mg/dL (9-16); Calcium 9.9 mg/dL (8.4-10.2); Carbon Dioxide 27 mmol/L (22-29); Chloride 111 mmol/L (96-108); Cholesterol 205 mg/dL (<200); Estimated Glomerular Filt Rate 53; HDL Cholesterol 68 mg/dL (>40); Potassium 4.3 mmol/L (3.3-5.1); Sodium 144 mmol/L (135-145); Total Protein 6.8 g/dL (6.5-8.0); Triglycerides 105 mg/dL (<150)
[2025-07-16 06:58] LABS: Lyme Abs Screen <0.90 index
== END 2025-07-15 13:45 | disposition home or self-care (01) ==
LOC: HO.WFDLDS 13:44
PROVIDERS: PCP Internal Medicine; Visit Provider Internal Medicine
DX: Z13.0 Encounter for screening for diseases of the blood and blood-forming organs and certain disorders involving the immune mechanism (principal); M25.552 Pain in left hip; M54.50 Low back pain, unspecified; R19.04 Left lower quadrant abdominal swelling, mass and lump; I10 Essential (primary) hypertension; F33.41 Major depressive disorder, recurrent, in partial remission
CPT/HCPCS: 36415; 80053; 80061; 85025; 85652; 86617; 86618; 99212

== ENCOUNTER 2025-07-15 13:44 | Outpatient (AMB) | payer OTHER, SELFPAY ==
--- NOTE | 2025-07-15 13:57 | MHC.PC.OV ---
Vital Signs 07/15/25 13:59 Height 5 ft 2 in Weight 145 lb 8 oz BMI 26.6 BP 128/66 Blood Pressure Location Rt brachial Position Sitting Respiration 14 Pulse 79 Pulse Source Pulse Oximeter Temp 98.3 F Temp Source Oral Pulse Oximetry (%) 100 Oxygen Delivery Method Room Air Intake Visit Reasons: Left hip pain Intake Note: Left hip pain Domestic Travel Consultant Required: No Allergies divalproex sodium (From Depakote) Allergy (Severe, Verified 07/15/25 14:01) Unconscious Tobacco use date assessed: 07/15/25 Fall risk assessment: No Falls in past year Last assessed Fall Risk: 07/15/25 Dental Screening Dental Screen Date: 12/31/24 HPI HPI Comments History of Present Illness Details The patient is a 69 year old female with a past medical history of anxiety, depression, hypertension, hyperlipidemia presenting for follow up Left hip pain for years, worsening over the past year. Feels it clicking in the anterior left hip with walking. Hurts to lay on the left side. She has more prominence in the left lower abdomen than the right, near the area where she has pain. Looks like adipose deposition. She uses tylenol and aleve prn for the hip pain CV: On amlodipine 5mg daily, losartan 25mg daily, simvastatin 40mg daily. Denies chest pain. Family history of heart disease. BH: Her ~2 years ago. She follows with behavioral health. She has been fairly stable on sertraline and tegretol however does still experience some episodes of grief. Following with neurology/sleep. Has SHILPI testing which did not show SHILPI. She has follow up scheduled for Kam Mammo: 04/30/2024. 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 NAD EYES: EOMI. Anicteric. HENT: Moist mucous membranes. No scleral icterus. No cervical lymphadenopathy. LUNGS: Clear to auscultation bilaterally. CARDIOVASCULAR: Regular rate and rhythm. +murmur, systolic ABDOMEN: see HPI EXTREMITIES: No edema. Non-tender. SKIN: No rashes or lesions. Warm. NEUROLOGIC: No focal neurological deficits. CN II-XII grossly intact PSYCHIATRIC: Cooperative. 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 occupational status: 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 Current occupational exposures/hazards: No Cognitive needs: No Hearing needs: Yes Vision needs: Yes Questionnaire Thrive Questionnaire Date Thrive assessed: 12/25/24 I am a: Patient What is your living situation today?: I have a steady place to live Within the past 12 months, did the food you bought not last and you didn't have the money to get more?: Never true Within the past 12 months, did you worry whether your food would run out before you got money to buy more?: Never true Do you have trouble paying for medicines?: No Do you have trouble getting transportation to medical appointments?: No Do you have trouble paying your heating and electricity bill?: No Do you have trouble taking care of your child, family member or friend?: No Do you have trouble with day-to-day activities such as bathing, preparing meals, shopping, managing finances, etc.?: No Are you currently unemployed and looking for a job?: No Are you interested in more education?: No Please select the resources that you would like help with: None Currently or been in a relationship where the following occur: No concerns reported THRIVE Score: 0 AUDIT C Alcohol Use Questionnaire (AUDIT-C) 1. How often do you have a drink containing alcohol?: Never 3. How often do you have six or more drinks on one occasion?: Never Total Score: 0 BHARTI-7 AMB Questionnaire BHARTI-7 Date BHARTI - 7 assessed: 12/19/23 Source: Developed by Drs. Bandar Medellin, Celine Rodriguez, Anson Mcgowan and colleagues, with an educational mc from [employer]. Physical exam (Primary Care) Vital Signs: Last Vital Signs Temp 98.3 F 07/15/25 13:59 Pulse 79 07/15/25 13:59 Resp 14 07/15/25 13:59 BP 128/66 07/15/25 13:59 Pulse Ox 100 07/15/25 13:59 Oxygen Delivery Method Room Air 07/15/25 13:59 BMI result Body Mass Index 26.6 Tobacco/Smoking Status: Tobacco use Status Tobacco use date assessed 07/15/25 07/15/25 14:04 Patient Tobacco Use Status Never used Tobacco 07/15/25 14:04 e-Cigarette/Vaping Use Never Used 07/15/25 14:04 Thrive Assessment: Date of Thrive Assessment Date Thrive assessed 12/25/24 07/15/25 14:04 Currently or been in a relationship where the following occur: No concerns reported Coding Level of Care Code Add On Preventative Visit Only Diagnoses Left hip pain M25.552 Left lower quadrant abdominal swelling R19.04 Primary hypertension I10 Hypertension type: primary hypertension Major depressive disorder, recurrent, in partial remission F33.41 Assessment & Plan Assessment & Plan (1) Left hip pain: Code(s): M25.552 - Pain in left hip Category: Medical (2) Left lower quadrant abdominal swelling: Code(s): R19.04 - Left lower quadrant abdominal swelling, mass and lump Category: Medical (3) Hypertension: Code(s): I10 - Essential (primary) hypertension Category: Medical Qualifiers: Hypertension type: primary hypertension Qualified Code(s): I10 - Essential (primary) hypertension (4) Major depressive disorder, recurrent, in partial remission: Comment: stable Code(s): F33.41 - Major depressive disorder, recurrent, in partial remission Category: Medical Plan 69 year old for follow up Left hip pain, abd prominence-xr, us ordered. Due for DXA. Ortho referral. Trial meloxicam HTN is well controlled Labs ordered Anxiety/depression is fairly stable Orders: Orders Complete Blood Count Auto Diff Today M25.552 - Pain in left hip, M54.50 - Low back pain, unspecified, Z13.0 - Encounter for screening for diseases of the blood and blood-forming organs and certain disorders involving the immune mechanism Comprehensive Met. Panel Today M25.552 - Pain in left hip, M54.50 - Low back pain, unspecified, Z13.0 - Encounter for screening for diseases of the blood and blood-forming organs and certain disorders involving the immune mechanism Lipid Panel Today M25.552 - Pain in left hip, M54.50 - Low back pain, unspecified, Z13.0 - Encounter for screening for diseases of the blood and blood-forming organs and certain disorders involving the immune mechanism Erythrocyte Sedimentation Rate Today M25.552 - Pain in left hip, M54.50 - Low back pain, unspecified, Z13.0 - Encounter for screening for diseases of the blood and blood-forming organs and certain disorders involving the immune mechanism Lyme IgG/IgM w/reflex to WB Today M25.552 - Pain in left hip, M54.50 - Low back pain, unspecified, Z13.0 - Encounter for screening for diseases of the blood and blood-forming organs and certain disorders involving the immune mechanism XR hip LT min 2V Today M25.552 - Pain in left hip, M54.50 - Low back pain, unspecified, Z13.0 - Encounter for screening for diseases of the blood and blood-forming organs and certain disorders involving the immune mechanism US abdomen limited Today M25.552 - Pain in left hip, M54.50 - Low back pain, unspecified, R19.04 - Left lower quadrant abdominal swelling, mass and lump, Z13.0 - Encounter for screening for diseases of the blood and blood-forming organs and certain disorders involving the immune mechanism XR DEXA axial skeleton Today M25.552 - Pain in left hip, M54.50 - Low back pain, unspecified, Z13.0 - Encounter for screening for diseases of the blood and blood-forming organs and certain disorders involving the immune mechanism Referrals Orthopedics Referral M25.552 - Pain in left hip Medications: New meloxicam 15 mg PO DAILY 90 tabs 1RF
[2025-07-15 13:59] VITALS: BP 128/66; PULSE 79; RESP 14; TEMP 36.8; O2SAT 100; BMI 26.6
== END 2025-07-15 14:29 | disposition home or self-care (01) ==
LOC: HO.HMCFM 13:45
PROVIDERS: PCP Internal Medicine; Visit Provider Internal Medicine
DX: M25.552 Pain in left hip (principal); R19.04 Left lower quadrant abdominal swelling, mass and lump; I10 Essential (primary) hypertension; F33.41 Major depressive disorder, recurrent, in partial remission

== ENCOUNTER 2025-07-16 16:10 | Outpatient (REF) | payer OTHER, SELFPAY ==
[2025-07-16 18:04] LABS: Ferritin 36 ng/mL (10-250)
[2025-07-16 18:18] LABS: Folate 17.5 ng/mL (> or = 4.0); Vitamin B12 697 pg/mL (200-900)
== END 2025-07-16 16:11 | disposition home or self-care (01) ==
LOC: HO.LAB 16:10
PROVIDERS: PCP Internal Medicine; Visit Provider Physician Assistant Medical
DX: Z13.0 Encounter for screening for diseases of the blood and blood-forming organs and certain disorders involving the immune mechanism (principal); G47.19 Other hypersomnia; G47.9 Sleep disorder, unspecified; R53.83 Other fatigue
CPT/HCPCS: 36415; 82607; 82728; 82746; 83090; 83921; 84207; 84425; 84443

== ENCOUNTER 2025-07-18 16:12 | Outpatient (REF) | payer OTHER, SELFPAY ==
--- NOTE | ~2025-07-18 | XR_ITS ---
EXAMINATION: XR HIP, LEFT CLINICAL INFORMATION: M25.552 - Pain in left hip COMPARISON: None available. TECHNIQUE: AP and frog-leg lateral views of the left hip. FINDINGS: Faint calcification adjacent the superior lateral femoral head probably represents chondrocalcinosis. Joint spaces preserved. There are no osteophytes. No fracture is identified. There is also linear calcification in the pubic symphysis joint consistent with chondrocalcinosis. XR/XR hip LT min 2V IMPRESSION: Chondrocalcinosis/CPPD. Otherwise, unremarkable left hip. Electronically signed by: Dong Negro MD 07/18/2025 04:50 PM EST
== END 2025-07-18 16:13 | disposition home or self-care (01) ==
LOC: HO.XRAY 16:12
PROVIDERS: PCP Internal Medicine; Visit Provider Internal Medicine
DX: M25.552 Pain in left hip (principal); M54.50 Low back pain, unspecified; Z13.0 Encounter for screening for diseases of the blood and blood-forming organs and certain disorders involving the immune mechanism
CPT/HCPCS: 73502

== ENCOUNTER → 2025-07-18 16:16 | Outpatient (BNV) | payer OTHER, SELFPAY | PROVIDERS: PCP Internal Medicine; Visit Provider Radiology Diagnostic Radiology | DX: M25.552 Pain in left hip (principal) | CPT/HCPCS: 73502 ==